=== PATIENT | female | born 1995 | race Caucasian/White ===

== ENCOUNTER → 2021-02-15 13:05 | Outpatient (CLI) | payer OTHER, MEDICAID, SELFPAY ==
[2021-02-15 18:12] LABS: Add Manual Diff / Slide Review NO; Basophils Absolute Auto 0 /uL (0-100); Basophils Percent Auto 0.1 % (0-2); Eosinophils Absolute Auto 200 /uL (0-450); Eosinophils Percent Auto 1.9 % (2-4); Hematocrit 41.6 % (36-46); Lymphocytes Absolute Auto 2800 /uL (1100-4500); Lymphocytes Percent Auto 35.7 % (25-40); Mean Corpuscular HGB Conc 33.7 % (30-36); Mean Corpuscular Hemoglobin 30.7 PG (26-34); Mean Corpuscular Volume 91.2 fL (80-100); Monocytes Absolute Auto 500 /uL (0-900); Monocytes Percent Auto 5.8 % (3-14); Neutrophils Absolute Auto 4500 /uL (1500-7000); Neutrophils Percent Auto 56.5 % (50-75); Platelet Count 335 X10^3/uL (150-400); Red Blood Cell Count 4.56 X10^6/uL (4.0-5.2); White Blood Cell Count 7.9 X10^3/uL (4.5-11.0)
[2021-02-15 18:30] LABS: Alanine Aminotransferase 34 IU/L (<35); Albumin 4.6 g/dL (3.5-5.0); Albumin Globulin Ratio 1.5 (1.0-2.8); Alkaline Phosphatase 56 U/L (38-126); Aspartate Aminotransferase 32 IU/L (14-36); BUN Creatinine Ratio 15.9 (6-22); Bilirubin Total 0.3 mg/dL (0.2-1.3); Blood Urea Nitrogen 10 mg/dL (7-17); Carbon Dioxide 27 mmol/L (22-32); Chloride 101 mmol/L (98-107); Estimated Glomerular Filt Rate > 60.0 mL/min (>60); Glucose 89 mg/dL (70-100); HEMOLYSIS 16 (0-50); Potassium 4.1 mmol/L (3.4-5.1); Sodium 136 mmol/L (137-145); Total Protein 7.6 g/dL (6.3-8.2)
[2021-02-15 19:00] LABS: Thyroid Stimulating Hormone 1.75 uIU/mL (0.47-4.68)
== END ==
PROVIDERS: PCP Nurse Practitioner Family; Referring Provider Nurse Practitioner Family; Visit Provider Nurse Practitioner Family
DX: E03.9 Hypothyroidism, unspecified (principal); R42 Dizziness and giddiness
CPT/HCPCS: 36415; 80053; 84443; 85025

== ENCOUNTER → 2021-02-24 10:49 | Outpatient (CLI) | payer OTHER, MEDICAID, SELFPAY ==
[2021-02-24 11:55] LABS: COVID19 -Nasal RAPID Negative (Negative)
== END ==
PROVIDERS: PCP Nurse Practitioner Family; Visit Provider Nurse Practitioner
DX: Z20.822 Contact with and (suspected) exposure to COVID-19 (principal)
CPT/HCPCS: 87635; C9803

== ENCOUNTER → 2021-03-02 09:16 | Outpatient (CLI) | payer OTHER, MEDICAID, SELFPAY ==
[2021-03-02 12:50] LABS: COVID19 -Nasal RAPID Negative (Negative)
== END ==
PROVIDERS: PCP Nurse Practitioner Family; Visit Provider Physician Assistant
DX: Z20.822 Contact with and (suspected) exposure to COVID-19 (principal)
CPT/HCPCS: 87635; C9803

== ENCOUNTER → 2021-05-12 15:24 | Outpatient (CLI) | payer OTHER, MEDICAID, SELFPAY | PROVIDERS: PCP Nurse Practitioner Family; Referring Provider Internal Medicine; Visit Provider Internal Medicine | DX: Z23 Encounter for immunization (principal) | CPT/HCPCS: 90471; 90686 ==

== ENCOUNTER → 2021-08-17 15:13 | Outpatient (CLI) | payer OTHER, MEDICAID, SELFPAY ==
[2021-08-17 17:33] LABS: Alanine Aminotransferase 25 IU/L (<35); Albumin 4.7 g/dL (3.5-5.0); Albumin Globulin Ratio 1.6 (1.0-2.8); Alkaline Phosphatase 44 U/L (38-126); Aspartate Aminotransferase 32 IU/L (14-36); BUN Creatinine Ratio 11.1 (6-22); Bilirubin Total 0.5 mg/dL (0.2-1.3); Blood Urea Nitrogen 8 mg/dL (7-17); Calcium 9.9 mg/dL (8.4-10.2); Carbon Dioxide 28 mmol/L (22-32); Chloride 102 mmol/L (98-107); Estimated Glomerular Filt Rate > 60.0 mL/min (>60); Glucose 85 mg/dL (70-100); HEMOLYSIS 24 (0-50); Potassium 4.1 mmol/L (3.4-5.1); Sodium 136 mmol/L (137-145); Total Protein 7.7 g/dL (6.3-8.2)
[2021-08-17 18:08] LABS: Thyroid Stimulating Hormone 1.64 uIU/mL (0.47-4.68)
== END ==
PROVIDERS: PCP Nurse Practitioner Family; Referring Provider Nurse Practitioner Family; Visit Provider Nurse Practitioner Family
DX: R79.89 Other specified abnormal findings of blood chemistry (principal); E03.9 Hypothyroidism, unspecified
CPT/HCPCS: 36415; 80053; 84443

== ENCOUNTER 2022-08-23 15:48 | Outpatient (RCR) | payer OTHER, MEDICAID, SELFPAY ==
--- NOTE | 2022-08-23 16:45 | PT.OIE ---
Current Diagnoses Stiffness of other specified joint, not elsewhere classified (08/23/22) Intervertebral disc disorders with radiculopathy, lumbar region (08/23/22) Muscle weakness (generalized) (08/23/22) Visit Care Team Role Provider Type JACKLYN Guy Family Provider Non-Staff Primary Care Provider Specialty: Medical Address: [address] [place] [address], [place], [address] Email: Benny Mondragon MD Attending Provider Physician Referring Provider Specialty: Orthopedics Orthopedic Surgery Address: [address] [place] [address], [place], [address] Email: [email or web address] Physical Therapy Initial Evaluation PT-OP-A Visit Information Start: 08/23/22 17:36 Freq: Status: Active Protocol: Document 08/23/22 16:00 DCW (Rec: 08/23/22 17:59 MOW [id number]) Out-Patient Physical Therapy Visit Information Visit Information Visit Type Initial Evaluation Visit Start Time 16:00 Visit Stop Time 16:40 Total Visit Minutes 40 Visit Number 1 Number of WEIGHT LOSS CONSULTANT Visits 0 Evaluation Information Evaluation Date 08/23/22 PT-OP-B Current Condition Start: 08/23/22 17:36 Freq: Status: Active Protocol: Document 08/23/22 16:00 DCW (Rec: 08/23/22 17:59 [facility] [id number]) Current Condition History of Current Condition Onset Date May 2019 Current Complaints Ongoing back pain History of Current Condition Pt is a 27 year old female presenting with a three year history of low back pain. Pt cannot recall any specific injury, just reports she woke up one morning and had severe pain, could not even get out of bed. Pt reports she was working at [facility] pain clinic at the time, and eventually began receiving epidural injections, which helped her deal with the pain. Pt receives an injection approximately every five months, which she reports has gone a long way to keeping her functional. Reports that since her pain is not as intense, she is able to go about her day regularly, but her pain is still there pretty much constantly. Other than her epidurals, she has not found anything that really helps at all. She is ~1 month out from her most recent injection, and therefore states that she is actually feeling pretty good at the moment. Has increased pain with any bending on sit->stand , as well as attempting any SLR or bridging in bed. Really anything that uses those back muscles hurts a lot . Does note occasional radicular symptoms, typically down the back of her left leg, does not cross knee. Prior Treatments and Tests Received an MRI a few months ago at [facility], brings up results on her phone. 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 Treatment Goals Patient/Caregiver Goals Improve body mechanics, learn appropriate/safe ways to strengthen back muscles at the gym PT-OP-C Subjective Start: 08/23/22 17:36 Freq: Status: Active Protocol: Document 08/23/22 16:00 DCW (Rec: 08/23/22 17:59 DCW [id number]) OP-PT Subjective Patient Comments Patient Comments It's pretty good right now, since I just had an injection a month ago. I usually start to feel it more after 3-4 months, and need another one by 5 months. I try not to get it too often. Patient Questionnaires Oswestry Low Back Index Oswestry Score 8/50 = 16% Oswestry Impairment 1 to 19% Impaired (Score 1-19) OP-PT Pain Assessment Pain Assessment Grid Paper Pain Assessment Grid Completed Yes Location Lower Back Intensity 4 Scale Used Numeric (0 - 10) Description Aching,Chronic PT-OP-K Range of Motion Start: 08/23/22 17:36 Freq: Status: Active Protocol: Document 08/23/22 16:00 DCW (Rec: 08/23/22 17:59 DCW [id number]) Lumbar Spine Range of Motion Lumbar Spine Active Degrees Testing Position Standing Flexion 75 Extension 20 Lateral Flexion Left 53 Lateral Flexion Right 50 ROM Limitations Pain Comments Lateral flexion measured in cm from fingertips to floor PT-OP-L Special Tests Start: 08/23/22 17:36 Freq: Status: Active Protocol: Document 08/23/22 16:00 DCW (Rec: 08/23/22 17:59 DCW [id number]) Special Tests Lumbar Spine Special Tests Vertical Spine Loading Test Results Negative Straight Leg Raise Test Results Hamstring tightness; L: 45?, R : 65? Slump Test Results Negative Prone Press Up Test Results Mild worsening pain Manual Traction Test Results Mild relief Compression Test Results Negative A-P Shearing Test Results Negative PT-OP-M Strength Start: 08/23/22 17:36 Freq: Status: Active Protocol: Document 08/23/22 16:00 DCW (Rec: 08/23/22 17:59 DCW [id number]) Hip Strength Hip Manual Muscle Testing Right Flexion (L2) 5 Normal Abduction 5 Normal Adduction 5 Normal External Rotation 5 Normal Internal Rotation 5 Normal Left Flexion (L2) 5 Normal Abduction 4+ Good+ Adduction 4+ Good+ External Rotation 5 Normal Internal Rotation 5 Normal Knee Strength Knee Manual Muscle Testing Right Flexion (S2) 5 Normal Extension (L3) 5 Normal Left Flexion (S2) 4 Good Extension (L3) 5 Normal Ankle/Foot Strength Ankle and Foot Manual Muscle Testing Right Dorsiflexion (L4) 5 Normal Left Dorsiflexion (L4) 5 Normal PT-OP-T Assessment and Plan Start: 08/23/22 17:36 Freq: Status: Active Protocol: Document 08/23/22 16:00 DCW (Rec: 08/24/22 09:44 DCW [id number]) Physical Therapy Assessment Rehab Potential Rehabilitation Potential Good Evaluation Complexity Number of Personal Factors/Comorbidities 1-2 Number of Body Systems Impaired 1-2 Clinical Presentation at Evaluation Unstable Impairments Impairments Activity Tolerance,Functional Activities,Functional Mobility ,Pain,ROM,Soft Tissue Mobility ,Strength,Tone Goals Two Impairment Pt has difficulty bracing low back using abdominals during activity Mcfp Goal (LTG) Pt to demonstrate bracing of abdominals when performing lifting and supine exercises 90% of the time in order to promote improved body mechanics and low back protection when working out at the gym. LTG Duration 10/23/22 One Impairment Pt does not have an appropriate home exercise program Short Term Goal (STG) Pt to be independent and compliant with an appropriate HEP STG Duration 09/23/22 Assessment Summary Assessment Pt presents with signs and symptoms consistent with referring diagnosis. Pt showing some radicular symptoms consistent with disc bulge noted on her recent MRI, has mild limitations with lumbar ROM, and reports pain with most lifting, bending, or supine exercises. Pt does note that due to recent epidural injection, she is doing better right now, typically feels pretty good for ~3 months following her injection. Should benefit from skilled therapy focusing on decreasing low back tone, improving ROM, trial of lumbar traction, improving core/LE strength, and training with body mechanics for pain-free/ safe weight lifting. Physical Therapy Plan Frequency and Duration Frequency of Treatment 1-2x/week Plan of Care Start Date 08/23/22 Plan of Care End Date 10/23/22 Therapeutic Interventions Therapeutic Interventions Balance Training,Home Exercise Program,Joint Mobilizations, Manual Therapy,Neuromuscular Re-education,Patient/Caregiver Education,Self-Care/Home Management,Soft Tissue Mobilization,Therapeutic Activities,Therapeutic Exercises Modalities Cold Pack/Ice Massage,Hot Packs,Traction- Mechanical Next Visit Focus/Plan Next Note Type Treatment Note Next Visit Plan Core strengthening, Traction, STM, joint mobilizations
--- NOTE | 2022-08-23 16:45 | PT.OPPOC ---
Physical, Occupational & Speech Therapy At [facility] Current Diagnoses Stiffness of other specified joint, not elsewhere classified (08/23/22) Intervertebral disc disorders with radiculopathy, lumbar region (08/23/22) Muscle weakness (generalized) (08/23/22) Visit Care Team Role Provider Type JACKLYN Guy Family Provider Non-Staff Primary Care Provider Specialty: Medical Address: [address] [place] [address], [phone] Email: Benny Mondragon MD Attending Provider Physician Referring Provider Specialty: Orthopedics Orthopedic Surgery Address: [address] [place] [address], [id number] Email: [email or web address] Plan Of Care PT-OP-T Assessment and Plan Start: 08/23/22 17:36 Freq: Status: Active Protocol: Document 08/23/22 16:00 DCW (Rec: 08/24/22 09:44 DCW [id number]) Physical Therapy Assessment Rehab Potential Rehabilitation Potential Good Evaluation Complexity Number of Personal Factors/Comorbidities 1-2 Number of Body Systems Impaired 1-2 Clinical Presentation at Evaluation Unstable Impairments Impairments Activity Tolerance,Functional Activities,Functional Mobility ,Pain,ROM,Soft Tissue Mobility ,Strength,Tone Goals Two Impairment Pt has difficulty bracing low back using abdominals during activity Tow Motor Driver Goal (LTG) Pt to demonstrate bracing of abdominals when performing lifting and supine exercises 90% of the time in order to promote improved body mechanics and low back protection when working out at the gym. LTG Duration 10/23/22 One Impairment Pt does not have an appropriate home exercise program Short Term Goal (STG) Pt to be independent and compliant with an appropriate HEP STG Duration 09/23/22 Assessment Summary Assessment Pt presents with signs and symptoms consistent with referring diagnosis. Pt showing some radicular symptoms consistent with disc bulge noted on her recent MRI, has mild limitations with lumbar ROM, and reports pain with most lifting, bending, or supine exercises. Pt does note that due to recent epidural injection, she is doing better right now, typically feels pretty good for ~3 months following her injection. Should benefit from skilled therapy focusing on decreasing low back tone, improving ROM, trial of lumbar traction, improving core/LE strength, and training with body mechanics for pain-free/ safe weight lifting. Physical Therapy Plan Frequency and Duration Frequency of Treatment 1-2x/week Plan of Care Start Date 08/23/22 Plan of Care End Date 10/23/22 Therapeutic Interventions Therapeutic Interventions Balance Training,Home Exercise Program,Joint Mobilizations, Manual Therapy,Neuromuscular Re-education,Patient/Caregiver Education,Self-Care/Home Management,Soft Tissue Mobilization,Therapeutic Activities,Therapeutic Exercises Modalities Cold Pack/Ice Massage,Hot Packs,Traction- Mechanical Next Visit Focus/Plan Next Note Type Treatment Note Next Visit Plan Core strengthening, Traction, STM, joint mobilizations Plan of Care Dates Plan of Care Start Date 08/23/22 Plan of Care End Date 10/23/22 Electronically Signed by: Georges Hardin, PT 08/24/22 0945 If you are in agreement with this Plan of Care, please return a signed and dated copy. I have reviewed this Plan of Care and certify that the skilled therapy services above are required to meet the patient?s needs. Physician Signature Date Printed Name and Credentials Clinical Instructor Signature Printed Name and Credentials
--- NOTE | 2022-09-13 09:32 | PT.OPDS ---
Current Diagnoses Stiffness of other specified joint, not elsewhere classified (08/23/22) Intervertebral disc disorders with radiculopathy, lumbar region (08/23/22) Muscle weakness (generalized) (08/23/22) Visit Care Team Role Provider Type JACKLYN Guy Family Provider Non-Staff Primary Care Provider Specialty: Medical Address: [address] [place] [address], [place], [address] Email: Benny Mondragon MD Attending Provider Physician Referring Provider Specialty: Orthopedics Orthopedic Surgery Address: [address] [place] [address], [place], [address] Email: [email or web address] Visit Number Visit Number 1 Discharge Summary PT-OP-B Current Condition Start: 08/23/22 17:36 Freq: Status: Active Protocol: Document 08/23/22 16:00 DCW (Rec: 08/23/22 17:59 DCW [id number]) Current Condition History of Current Condition Onset Date May 2019 Current Complaints Ongoing back pain History of Current Condition Pt is a 27 year old female presenting with a three year history of low back pain. Pt cannot recall any specific injury, just reports she woke up one morning and had severe pain, could not even get out of bed. 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 Pt receives an injection approximately every five months, which she reports has gone a long way to keeping her functional. Reports that since her pain is not as intense, she is able to go about her day regularly, but her pain is still there pretty much constantly. Other than her epidurals, she has not found anything that really helps at all. She is ~1 month out from her most recent injection, and therefore states that she is actually feeling pretty good at the moment. Has increased pain with any bending on sit->stand , as well as attempting any SLR or bridging in bed. Really anything that uses those back muscles hurts a lot . Does note occasional radicular symptoms, typically down the back ofher left leg, does not cross knee. Prior Treatments and Tests Received an MRI a few months ago at [facility], brings up results on her phone. 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 Treatment Goals Patient/Caregiver Goals Improve body mechanics, learn appropriate/safe ways to strengthen back muscles at the gym PT-OP-C Subjective Start: 08/23/22 17:36 Freq: Status: Active Protocol: Document 08/23/22 16:00 DCW (Rec: 08/23/22 17:59 DCW [id number]) OP-PT Subjective Patient Comments Patient Comments It's pretty good right now, since I just had an injection a month ago. I usually start to feel it more after 3-4 months, and need another one by 5 months. I try not to get it too often. Patient Questionnaires Oswestry Low Back Index Oswestry Score 8/50 = 16% Oswestry Impairment 1 to 19% Impaired (Score 1-19) OP-PT Pain Assessment Pain Assessment Grid Paper Pain Assessment Grid Completed Yes Location Lower Back Intensity 4 Scale Used Numeric (0 - 10) Description Aching,Chronic PT-OP-K Range of Motion Start: 08/23/22 17:36 Freq: Status: Active Protocol: Document 08/23/22 16:00 DCW (Rec: 08/23/22 17:59 DCW [id number]) Lumbar Spine Range of Motion Lumbar Spine Active Degrees Testing Position Standing Flexion 75 Extension 20 Lateral Flexion Left 53 Lateral Flexion Right 50 ROM Limitations Pain Comments Lateral flexion measured in cm from fingertips to floor PT-OP-L Special Tests Start: 08/23/22 17:36 Freq: Status: Active Protocol: Document 08/23/22 16:00 DCW (Rec: 08/23/22 17:59 DCW [id number]) Special Tests Lumbar Spine Special Tests Vertical Spine Loading Test Results Negative Straight Leg Raise Test Results Hamstring tightness; L: 45?, R : 65? Slump Test Results Negative Prone Press Up Test Results Mild worsening pain Manual Traction Test Results Mild relief Compression Test Results Negative A-P Shearing Test Results Negative PT-OP-M Strength Start: 08/23/22 17:36 Freq: Status: Active Protocol: Document 08/23/22 16:00 DCW (Rec: 08/23/22 17:59 DCW [id number]) Hip Strength Hip Manual Muscle Testing Right Flexion (L2) 5 Normal Abduction 5 Normal Adduction 5 Normal External Rotation 5 Normal Internal Rotation 5 Normal Left Flexion (L2) 5 Normal Abduction 4+ Good+ Adduction 4+ Good+ External Rotation 5 Normal Internal Rotation 5 Normal Knee Strength Knee Manual Muscle Testing Right Flexion (S2) 5 Normal Extension (L3) 5 Normal Left Flexion (S2) 4 Good Extension (L3) 5 Normal Ankle/Foot Strength Ankle and Foot Manual Muscle Testing Right Dorsiflexion (L4) 5 Normal Left Dorsiflexion (L4) 5 Normal PT-OP-T Assessment and Plan Start: 08/23/22 17:36 Freq: Status: Active Protocol: Document 09/13/22 09:30 DCW (Rec: 09/13/22 09:32 DC [id number]) Physical Therapy Assessment Assessment Summary Assessment Pt has canceled or no-shown last six appointments. Pt will be discharged per clinic attendance policy. STOCK MOVER Queta left message for pt informing her of discharge, and instructing her to return to PCP for new referral if she required any further PT. Physical Therapy Plan Discharge Physical Therapy Discharge Reasons No Longer Attending PT
== END 2022-09-14 14:36 | disposition home or self-care (01) ==
LOC: PHYS 15:48
PROVIDERS: Family Provider Nurse Practitioner Family; PCP Nurse Practitioner Family; Referring Provider Physical Medicine & Rehabilitation; Visit Provider Physical Medicine & Rehabilitation
DX: M51.16 Intervertebral disc disorders with radiculopathy, lumbar region (principal); M25.69 Stiffness of other specified joint, not elsewhere classified; M62.81 Muscle weakness (generalized)
CPT/HCPCS: 97161